=== PATIENT | male | born 1955 | race Caucasian/White ===

== ENCOUNTER → 2017-06-22 | Outpatient (CLI) | payer BC | LOC: HEART 5 14:18 | DX: J44.9 Chronic obstructive pulmonary disease, unspecified (principal); R10.13 Epigastric pain; R91.8 Other nonspecific abnormal finding of lung field; J43.9 Emphysema, unspecified | CPT/HCPCS: 94060; 94729 ==

== ENCOUNTER → 2021-02-23 | Outpatient (CLI) | payer BC ==
[~2021-02-23] MED LIST: AUGMENTIN 875-1 EACH PO; DECADRON6 MG PO; DOXYCYCLINE HY100 MG PO; HYDRALAZINE HCL25 MG PO; LEVOFLOXACIN250 MG PO; NORVASC10 MG PO; VENTOLIN HFA 66.7 GM INH
== END ==
LOC: EXRD 11:43
DX: R09.1 Pleurisy (principal); J43.9 Emphysema, unspecified
CPT/HCPCS: 71046

== ENCOUNTER → 2021-03-23 | Outpatient (CLI) | payer OTHER, BC | LOC: KOH-I 11:30 | DX: M79.641 Pain in right hand (principal); S62.201A Unspecified fracture of first metacarpal bone, right hand, initial encounter for closed fracture | CPT/HCPCS: 73130 ==